=== PATIENT | male | born 1960 | race Caucasian/White ===

== ENCOUNTER 2024-09-05 16:53 | Emergency (ER) | payer MEDICARE, MEDICAID ==
[~2024-09-05] VITALS: Ht 182.9 cm; Wt 104.0 kg
[2024-09-05 16:57] VITALS: O2SAT 97
[2024-09-05] MEDS ORDERED: IBUP-2029 MT (19:25)
[2024-09-05] MEDS: IBUPROFEN 600MG TABLET PO ONE (20:16)
[2024-09-05 21:16] VITALS: BP 124/51; PULSE 53; RESP 18; TEMP 36.83628; O2SAT 98
== END 2024-09-05 21:45 | disposition home or self-care (01) ==
LOC: ER 16:53
DX: S43.101A Unspecified dislocation of right acromioclavicular joint, initial encounter (principal); Z86.718 Personal history of other venous thrombosis and embolism; W05.0XXA Fall from non-moving wheelchair, initial encounter; Y93.89 Activity, other specified; Y92.89 Other specified places as the place of occurrence of the external cause; Y99.8 Other external cause status
CPT/HCPCS: 73030; 99283; L3670

== ENCOUNTER 2024-09-06 00:21 | Emergency (ER) | payer MEDICARE, MEDICAID ==
[~2024-09-06] VITALS: Ht 177.8 cm; Wt 95.0 kg
[~2024-09-06 00:21] MED LIST: IBUP-2029 MT
[2024-09-06 00:23] VITALS: O2SAT 95
[2024-09-06] MEDS: ACETAMINOPHEN 325MG TABLET PO ONE (02:07)
[2024-09-06 03:18] LABS: BASOPHILS % 1.9 % (0.0-2.0); EOSINOPHILS % 3.5 % (0.0-5.0); HEMATOCRIT. 31.6 % (42.0-52.0); HEMOGLOBIN. 10.1 g/dL (14.0-18.0); LYMPHOCYTES % 20.6 % (20.0-50.0); MEAN CORPUSCULAR HEMOGLOBIN 29.1 pg (28.0-32.0); MEAN CORPUSCULAR HGB CONC 31.9 g/dL (31.0-37.0); MEAN CORPUSCULAR VOLUME 91.3 fL (80.0-94.0); MONOCYTES % 6.4 % (2.0-8.0); NEUTROPHILS % 67.6 % (40.0-76.0); PLATELET 286 x1000/uL (130-400); RED BLOOD CELL COUNT 3.46 mill/uL (4.7-6.1); RED CELL DISTRIBUTION WIDTH 18.1 % (11.6-14.6)
[2024-09-06 03:21] LABS: CHLORIDE 117 mEq/L (98-107); POTASSIUM 3.7 mEq/L (3.5-5.1); SODIUM 144 mEq/L (136-145)
[2024-09-06 03:22] LABS: CALCIUM 8.7 mg/dL (8.7-10.4); CARBON DIOXIDE 19 mEq/L (21-32)
[2024-09-06 03:27] LABS: CREATININE 1.7 mg/dL (0.6-1.3); GLUCOSE 130 mg/dL (70-105); TROPONIN I HIGH SENSITIVITY 8 ng/L (3.0-53); UREA NITROGEN BLOOD 27 mg/dL (9-23)
[2024-09-06 05:29] VITALS: BP 119/49; PULSE 89; RESP 22; TEMP 36.89184; O2SAT 99
== END 2024-09-06 05:31 | disposition home or self-care (01) ==
LOC: ER 00:21
DX: S20.219A Contusion of unspecified front wall of thorax, initial encounter (principal); I25.2 Old myocardial infarction; W05.0XXA Fall from non-moving wheelchair, initial encounter; Z86.73 Personal history of transient ischemic attack (TIA), and cerebral infarction without residual deficits; Z98.890 Other specified postprocedural states; Y93.89 Activity, other specified; Y92.89 Other specified places as the place of occurrence of the external cause; Y99.8 Other external cause status
CPT/HCPCS: 36415; 71045; 80048; 84484; 85025; 99284

== ENCOUNTER 2024-09-08 16:14 | Emergency (ER) | payer MEDICARE, MEDICAID ==
[~2024-09-08] VITALS: Ht 167.6 cm; Wt 68.0 kg
[2024-09-08 16:18] VITALS: BP 140/70; PULSE 55; RESP 18; TEMP 97.8; O2SAT 98
== END 2024-09-08 17:55 | disposition left against medical advice (07) ==
LOC: ER 16:14
DX: M79.601 Pain in right arm (principal); Z53.21 Procedure and treatment not carried out due to patient leaving prior to being seen by health care provider

== ENCOUNTER 2024-09-29 21:31 | Emergency (ER) | payer MEDICARE, MEDICAID ==
[~2024-09-29] VITALS: Ht 182.9 cm; Wt 95.0 kg
[2024-09-29 21:44] VITALS: BP 144/65; PULSE 54; RESP 16; TEMP 98.8; O2SAT 97
[2024-09-29] MEDS ORDERED: ACETAMINOPHEN 325MG TABLET PO ONE (21:45)
== END 2024-09-30 04:30 | disposition home or self-care (01) ==
LOC: ER 21:31
DX: S09.90XA Unspecified injury of head, initial encounter (principal); I48.91 Unspecified atrial fibrillation; I10 Essential (primary) hypertension; E11.9 Type 2 diabetes mellitus without complications; E03.9 Hypothyroidism, unspecified; E78.5 Hyperlipidemia, unspecified; Z86.73 Personal history of transient ischemic attack (TIA), and cerebral infarction without residual deficits; W05.0XXA Fall from non-moving wheelchair, initial encounter; Y93.89 Activity, other specified; Y92.89 Other specified places as the place of occurrence of the external cause; Y99.8 Other external cause status
CPT/HCPCS: 99284